=== PATIENT | female | born 1970 | race Caucasian/White ===

== ENCOUNTER 2024-07-07 19:23 | Emergency (ER) | payer OTHER, SELFPAY ==
[2024-07-07 19:36] VITALS: BP 141/77; PULSE 82; RESP 15; TEMP 36.6; O2SAT 96; BMI 28.2
[2024-07-07] MEDS: TET,DIPH,PERTUSS(ACELL),VAC/PF 0.5 ML SYRINGE IM (22:20)
[2024-07-08] MEDS: LIDOCAINE 1% 20 ML INJ
--- NOTE | 2024-07-08 00:12 | ED_ITS ---
HPI - Wound/Laceration General Chief Complaint: Wound/Laceration Stated Complaint: Lft Hand Laceration Time Seen by Provider: 07/08/24 00:11 Source: patient, RN notes reviewed and old records reviewed Mode of arrival: Ambulatory Limitations: no limitations History of Present Illness HPI narrative: 54-year-old female with complaint of laceration to her left hand. Patient was removing some brand new knife from a box when she accidentally cut herself on the lateral side of her hand. She denies numbness tingling or weakness. He is able to fully her fingers. Denies any other injuries. Was unsure of her tetanu s status. Takes medication for hypothyroidism and mood. Denies any allergies to medications. Does use tobacco. Related Data Home Medications Medication Instructions Recorded Confirmed cetirizine 10 mg tablet 10 mg PO DAILY 07/07/24 07/07/24 citalopram 40 mg tablet 40 mg PO DAILY 07/07/24 07/07/24 dextroamphetamine-amphetamine 20 1 tab PO BID 07/07/24 07/07/24 mg tablet gabapentin 300 mg capsule 300 mg PO 3XD 07/07/24 07/07/24 ibuprofen 800 mg tablet 800 mg PO BID PRN low back pain 07/07/24 07/07/24 levothyroxine 100 mcg tablet 100 mcg PO DAILY 07/07/24 07/07/24 progesterone micronized 100 mg 100 mg PO DAILY 07/07/24 07/07/24 capsule Allergies Allergy/AdvReac Type Severity Reaction Status Date / Time No Known Drug Allergies Allergy Verified 07/07/24 19:34 Review of Systems Review of Systems ROS Unobtainable: All systems reviewed & are unremarkable except as noted in HPI and below Patient History Social History Smoking Status: Current some day smoker Smoking Status: Current some day smoker tobacco type: vaping Exam Narrative Exam Narrative: GENERAL: Alert and oriented x three, female in mild distress HEENT: Head normocephalic, atraumatic, EOMI, pupils reactive, face symmetric, moist mucous membranes NECK: Supple, full range of motion EXTREMITIES: Normal range of motion, no clubbing or edema. Neurovascularly intact. Patient has a 1.75 cm laceration on the ulnar just to the 5th digit did not towards the crease in the palmar side. Can visualize a small amount of subcutaneous tissue no tendon or ligament involvement. Patient has full range of motion. Cap refills less than 2 seconds all 5 fingers. Normal sensation throughout. 2+ radial pulse. No bony tenderness. NEUROLOGICAL: Cranial nerves II through XII grossly intact. Moving all extremities SKIN: Warm, dry, no petechiae, no rashes or lesions. Initial Vital Signs Initial Vital Signs: Vital Signs Temperature 98 F 07/07/24 19:36 Pulse Rate 82 07/07/24 19:36 Respiratory Rate 15 07/07/24 19:36 Blood Pressure 141/77 H 07/07/24 19:36 Pulse Oximetry 96 07/07/24 19:36 Oxygen Delivery Method Room Air 07/07/24 19:36 Procedures Laceration Repair Laceration 1: Site: hand Side (If applicable): left Size (cm): 1.75 Description: linear Depth: simple, single layer Local Anesthetic: lidocaine 1% Amount of anesthesia used (mL): 4 Pre-repair: wound explored, irrigated extensively and deep structures intact Skin layer closed with: nylon Skin layer suture size: 4-0 Number of sutures: 5 Technique: simple, interrupted Course Orders Ordered: Discontinued Medications Bacitracin (Bacitracin Oint 0.9 Gm Pckt) 1 applic TOP NOW ONE Stop: 07/08/24 00:46 Last Admin: 07/08/24 00:48 Dose: 1 applic Documented By: AB Diphtheria/Tetanus/Acell Pertussis (Tet,Diph,Pertuss(Acell),Vac/Pf 0.5 Ml Syringe) 0.5 ml IM .ONCE ONE Stop: 07/07/24 19:46 Last Admin: 07/07/24 22:20 Dose: 0.5 ml Documented By: TOÑA Lidocaine HCl (Lidocaine 1% 20 Ml) 20 ml INJ INTRA-OP ONE Stop: 07/07/24 21:51 Last Admin: 07/08/24 00:00 Dose: 5 ml Documented By: AB Vital Signs Vital signs: Vital Signs - 8 hr 07/08/24 00:58 Pulse Rate 72 Respiratory Rate 22 Blood Pressure 139/79 Pulse Oximetry 97 Oxygen Delivery Method Room Air MDM - Wound/Laceration MDM Narrative Medical decision making narrative: 54-year-old female with accidental laceration to her left hand patient has no obvious tendon or ligament involvement. Tetanus was updated. Laceration was repaired. Discussed return precautions. Discharge Plan Departure Patient Disposition: Home Clinical Impression: Laceration of hand Instructions: DI for Laceration Repair Activity Restrictions/Additional Instructions: Follow up in 7-10 days for removal of your sutures at the emergency department, urgent care or primary care. Wound Care: Keep wound(s) clean and dry. Wash daily with soap and water only. Do not use over the counter products (alcohol or peroxide)on the wounds unless instructed by a physician. You can use triple antibiotic ointment to the affected area. If wound condition worsens (increased/expanding redness, developing fluid blisters, or worsening pain), either contact your doctor for an urgent re- assessment , or return to the Emergency Department. Return if fever greater than 100.4 Fahrenheit, increased swelling, increasing pain or worsening symptoms such as increased discharge or spreading redness, new numbness, tingling or weakness difficulty with movement or other new or concerning changes. Prescriptions: No Action citalopram 40 mg Tablet 40 mg PO DAILY cetirizine 10 mg tablet 10 mg PO DAILY ibuprofen 800 mg tablet 800 mg PO BID PRN (Reason: low back pain) levothyroxine 100 mcg tablet 100 mcg PO DAILY dextroamphetamine-amphetamine 20 mg tablet 1 tab PO BID gabapentin 300 mg capsule 300 mg PO 3XD progesterone micronized 100 mg capsule 100 mg PO DAILY Referrals: Miscellaneous,Doctor, MD [Primary Care Provider] - Stand Alone Forms: Patient Portal/API/Survey
[2024-07-08] MEDS: BACITRACIN OINT 0.9 GM PCKT 1 APPLIC TOP (00:48)
[2024-07-08 00:58] VITALS: BP 139/79; PULSE 72; RESP 22; O2SAT 97
--- NOTE | 2024-07-08 00:58 | PC.NURSE ---
5 sutures intact. Pt given instructions on site care.
== END 2024-07-08 01:00 | disposition home or self-care (01) ==
PROVIDERS: Emergency Provider Emergency Medicine
DX: S61.412A Laceration without foreign body of left hand, initial encounter (principal); W26.0XXA Contact with knife, initial encounter; Z23 Encounter for immunization
CPT/HCPCS: 12001; 90471; 99283; 90715